=== PATIENT | female | born 1990 | race Caucasian/White ===

== ENCOUNTER → 2020-04-02 | Outpatient (CLI) | payer OTHER ==
[~2020-04-02] MED LIST: BOTOX INJ 1100 UNITS IM; COL-RITE100 MG PO; DEPO-PROVE150 MG/1 M IM; GLUCOPHAGE 500500 MG PO; IBUPROFEN400 MG PO; NEURONTIN 300300 MG PO; NORCO 5-325 TA1 EACH PO; PRENATAL VITAM1 EAC4 PO; PRENATAL VITAM1 EAC8 PO; VITAMIN B-625 MG PO
== END ==
LOC: US 04-01 15:30
DX: N63.20 Unspecified lump in the left breast, unspecified quadrant (principal)
CPT/HCPCS: 76641-LT